=== PATIENT | female | born 1955 | race Caucasian/White ===

== ENCOUNTER → 2017-06-06 | Outpatient (CLI) | payer MEDICARE ==
[~2017-06-06] MED LIST: ADVIL200 MG PO; AMBIEN10 MG PO; ASPIRIN EC81 MG PO; CALCIUM PO; CINNAMON PO; FISH OIL 1,2001 EAC3 PO; MORPHINE 15MG I15 MG PO; PERCOCET 10-321 EACH PO; PRENATAL ONE T1 EACH PO; VIT D PO; VITAMIN C250 M1 PO; VITAMIN C250 MG
== END ==
LOC: GNJRC 11:00
DX: Z01.818 Encounter for other preprocedural examination (principal); M16.11 Unilateral primary osteoarthritis, right hip